=== PATIENT | female | born 1945 | race African-American/Black ===

== ENCOUNTER 2017-04-21 08:13 | Day surgery (SDC) | payer MEDICARE, MEDICAID ==
[~2017-04-21] VITALS: Ht 154.9 cm; Wt 89.0 kg
[~2017-04-21 08:13] MED LIST: ALBU1AER INH; AMLO10 PO; COZA50TA PO; GABA300 PO; GLUCTAB PO; HYDR-2768 PO; MEVA40TA6 PO; SERT50 PO; [UNRECOGNIZED DRUG - SUPPLY]; lancets TD; test strips TD
[2017-04-21 09:28] VITALS: BP 159/88; PULSE 73; RESP 16; TEMP 97.9; O2SAT 97
[2017-04-21] MEDS ORDERED: FERR325T8 PO (09:28)
[2017-04-21] MEDS ORDERED: HYDR25TA5 PO (09:28)
[2017-04-21] MEDS ORDERED: DILT-60 PO (09:28)
[2017-04-21] MEDS ORDERED: GABA300C5 PO (09:28)
[2017-04-21] MEDS ORDERED: VENTAER INH (09:28)
[2017-04-21] MEDS ORDERED: VITA100064 PO (09:28)
[2017-04-21] MEDS ORDERED: METO50TA PO (09:28)
[2017-04-21] MEDS ORDERED: CLOP75TA PO (09:28)
[2017-04-21] MEDS ORDERED: SERT-129 PO (09:28)
[2017-04-21] MEDS ORDERED: SODIUM BICARBONATE 100 MEQ in D5W 1000 ML IV SCH (09:30)
--- NOTE | 2017-04-21 10:13 | PD.VS.PN ---
Pre-operative Note Pre-operative diagnosis: PAD, L LE rest pain, failed distal bypass Planned procedure: Aortogram w/ L LE angiogram Interval History: Pt has continued L LE rest pain but no other change in history that would preclude angiogram today. Labs: pending Blood: none needed Orders: NPO Post-operative destination: DOCU Operative site marked: Yes Consent: Informed consent has been obtained from Shnael Landon. I have explained the procedure in detail and discussed the risks, benefits, and potential complications. All questions have been answered. Patient contact information: none per patient Hansel Casillas MD Apr 21, 2017 10:13
[2017-04-21] MEDS: HEPARIN SODIUM - IV 10,000 UNITS/10 ML VIAL ONE (10:30)
[2017-04-21] MEDS ORDERED: IOHEXOL 350 MG/ML 100 ML BTL (for RAD DIAG) OTHER ONE ×4 (10:30→12:50)
[2017-04-21] MEDS ORDERED: MIDAZOLAM HCL 5 MG/ML VIAL (1 ML) ONE (10:30)
[2017-04-21] MEDS: IOHEXOL 350 MG/ML 50 ML BTL (for RAD DIAG) OTHER ONE ×2 (10:30→12:46)
[2017-04-21 10:35] LABS: BASOPHIL # 0.1 TH/MM3 (0-0.2); BASOPHIL % 1.1 % (0.0-2.0); EOSINOPHIL # 0.2 TH/MM3 (0-0.4); LYMPH % 24.3 % (9.0-44.0); LYMPHOCYTE # 1.7 TH/MM3 (1.0-4.8); MEAN CELL VOLUME 82.9 FL (80.0-100.0); MEAN CORPUSCULAR HEMOGLOBIN 26.4 PG (27.0-34.0); MEAN CORPUSCULAR HGB CONC 31.9 % (32.0-36.0); MONO % 12.6 % (0.0-8.0); PLATELET COUNT 210 TH/MM3 (150-450); RED BLOOD COUNT 4.83 MIL/MM3 (4.00-5.30); RED CELL DISTRIBUTION WIDTH 18.6 % (11.6-17.2); WHITE BLOOD COUNT 6.9 TH/MM3 (4.0-11.0)
[2017-04-21 10:42] LABS: HEMO FLAGS AUTO DIFF
[2017-04-21 10:54] LABS: POTASSIUM 4.5 MEQ/L (3.5-5.1)
[2017-04-21 11:17] LABS: OVALOCYTES 1+ (NORMAL); PLATELET ESTIMATE SMEAR NORMAL (NORMAL); PLATELET MORPHOLOGY NORMAL (NORMAL); SCAN/DIFF AUTO DIFF CONFIRMED
--- NOTE | 2017-04-21 11:19 | HHI.PR ---
Immediate Post Op Note Procedure Date: Apr 21, 2017 Pre Op Diagnosis: PAD w/ L LE rest pain, failed distal Post Op Diagnosis: PAD w/ L LE rest pain, failed distal Surgeon: Hansel Casillas Flow Manager(s): none Procedure: Aortogram w/ L LE angiogram Findings: Occluded L SFA, bypass, and popliteal artery Occluded AT and PT Patent distal peroneal Complications: none apparent 4F sheath in R AUTOMATION CLERK removed in OR Estimated blood loss: 5mL Anesthesia: MAC Drains: None Patient to: Other (DOCU) Hansel Casillas MD Apr 21, 2017 11:19
--- NOTE | 2017-04-21 15:30 | MP ---
cc: HANSEL CASILLAS MD DATE OF SURGERY 04/21/2017 PREOPERATIVE DIAGNOSIS Left lower extremity rest pain, peripheral arterial occlusive disease, failed bypass. POSTOPERATIVE DIAGNOSIS Left lower extremity rest pain, peripheral arterial occlusive disease, failed bypass. PROCEDURE Aortogram with left lower extremity angiogram. ATTENDING SURGEON Hansel Casillas MD RESIDENT SURGEON None. ANESTHESIA Local with sedation. INDICATIONS FOR PROCEDURE Ms. Landon is a 72-year-old lady who has diabetes, peripheral vascular disease and several left lower extremity bypasses, all of which have failed. She presented with rest pain and the last option at limb salvage. She was taken to the operating room for angiographic evaluation and potential treatment. There was no prior catheterization or imaging studies available for my review. DESCRIPTION OF PROCEDURE Informed consent was obtained from the patient. She was taken to the operating room and placed supine on the operating room table. An appropriate time-out was taken to identify the patient, the operative site and the procedure. The administration of antibiotics was not necessary since it is a clean procedure and we do not plan the implantation of any foreign object. Everyone in the room agreed with the time-out and we proceeded. Her bilateral groins were prepped and draped and the right groin was anesthetized with 1% lidocaine. A 21-gauge micropuncture needle was used to access the right common femoral artery. This was exchanged using Seldinger technique through the micropuncture sheath through which a 0.05 Glidewire was introduced. The micropuncture sheath was exchanged for a 4-Bolivian sheath. A VCF catheter was placed over the wire into the sheath and aortogram and pelvic arteriogram was obtained. Glidewire was reintroduced and navigated down to the left common femoral artery and the VCF catheter was advanced over this and a left lower extremity arteriogram was obtained. The wire, catheter and sheath were removed and manual pressure applied for hemostasis. There were no complications. I was present and scrubbed and performed the entire procedure. INTERPRETATION OF IMAGES The patient has patent renal arteries, patent SMA, patent infrarenal aorta, common iliac arteries to the left common iliac artery stent that is widely patent. The left hypogastric artery is severely diseased as is the right but the external iliac arteries are patent. The left common femoral artery is patent. The profunda is patent but diseased. The SFA, popliteal and tibioperoneal trunk are all occluded. The anterior tibial artery and posterior tibial artery is occluded. The profunda-based collaterals reconstitute a distal peroneal artery at the very distal-most aspect of the calf. MD RASHAD Trevino/BETO /1:27 PM /3:12 PM
[2017-04-28] MEDS ORDERED: SERT-132 PO (13:12)
== END 2017-04-21 15:28 | disposition home or self-care (01) ==
LOC: HCVO 08:13 → HDIC 08:16 → HCVO 15:28
PROVIDERS: ATTEND Surgery
DX: I73.9 Peripheral vascular disease, unspecified (principal); I10 Essential (primary) hypertension; E78.00 Pure hypercholesterolemia, unspecified; J44.9 Chronic obstructive pulmonary disease, unspecified
CPT/HCPCS: 36246; 75625; 75710; 80048; 85025; C1769; J1644; J2250; J3010; Q9967

== ENCOUNTER → 2017-04-28 | Outpatient (CLI) | payer MEDICARE, MEDICAID ==
[~2017-04-28] MED LIST changes: -ALBU1AER INH; -AMLO10 PO; +CLOP75TA PO; -COZA50TA PO; +DILA2TAB2 PO; +DILT-60 PO; +FERR325T8 PO; -GABA300 PO; +GABA300C5 PO; -GLUCTAB PO; -HYDR-2768 PO; +HYDR25TA5 PO; +METO50TA PO; -MEVA40TA6 PO; +SERT-129 PO; +SERT-132 PO; -SERT50 PO; +VENTAER INH; +VITA100064 PO; -[UNRECOGNIZED DRUG - SUPPLY]; -lancets TD; -test strips TD
[2017-04-28 13:59] LABS: HEMATOCRIT 39.5 % (35.0-46.0); MEAN CELL VOLUME 83.4 FL (80.0-100.0); MEAN CORPUSCULAR HEMOGLOBIN 27.3 PG (27.0-34.0); MEAN CORPUSCULAR HGB CONC 32.8 % (32.0-36.0); PLATELET COUNT 212 TH/MM3 (150-450); RED BLOOD COUNT 4.74 MIL/MM3 (4.00-5.30); RED CELL DISTRIBUTION WIDTH 17.4 % (11.6-17.2); REVIEW FLAG FINAL; WHITE BLOOD COUNT 6.5 TH/MM3 (4.0-11.0)
[2017-04-28 14:17] LABS: BLOOD, URINE NEG (NEG); COMMENT (UR) CULT NOT INDICATED; CULTURE IF INDICATED CULT NOT INDICATED; GLUCOSE,URINE NEG (NEG); HYALINE CAST, URINE 4 /lpf (RARE); KETONE, URINE NEG (NEG); MUCUS URINE FEW /lpf (OCC); NITRITE,URINE NEG (NEG); SQUAMOUS EPITHELIAL CELL URINE 1 /hpf (0-5); URINE COLOR YELLOW (YELLW/STRAW)
[2017-04-28 14:25] LABS: BICARBONATE 27.9 MEQ/L (21.0-32.0)
--- NOTE | 2017-04-29 11:27 | EKG ---
Date Performed: 04/28/2017 Time Performed: 13:05:37 PTAGE: 72 years EKG: Sinus rhythm WITH OCCASIONAL SUPRAVENTRICULAR PREMATURE COMPLEXES BORDERLINE ECG PREVIOUS TRACING 04/06/2007 06.37.57 Atrial premature beats are new from the prior tracing. DOCTOR: Marcos Rico Interpretating Date/Time 04/29/2017 11:25:26
== END ==
LOC: CPRE 12:39
PROVIDERS: ATTEND Surgery
DX: Z01.810 Encounter for preprocedural cardiovascular examination (principal); I73.9 Peripheral vascular disease, unspecified; I10 Essential (primary) hypertension; Z01.812 Encounter for preprocedural laboratory examination
CPT/HCPCS: 36415; 80048; 81001; 85027; 93005

== ENCOUNTER 2017-05-07 06:24 | Inpatient (IN) | payer MEDICARE ==
[~2017-05-07] VITALS: Ht 154.9 cm; Wt 82.5 kg
[2017-05-07] VITALS (10 sets, daily range): BP systolic 132–170; BP diastolic 77–103; PULSE 104–113; RESP 18–22; TEMP 98.5–99.1; O2SAT 95
[~2017-05-07 06:24] MED LIST changes: -DILA2TAB2 PO; -FERR325T8 PO; -SERT-129 PO
[2017-05-07] MEDS ORDERED: POVIDONE IODINE 5% (ANTISEPSIS KIT) 4 APPLICATIONS EACH NARE PRN (07:00)
[2017-05-07] MEDS ORDERED: INSULIN HUMAN REGULAR 1,000 UNITS/10 ML VIAL SQ PRN (07:00)
[2017-05-07] MEDS ORDERED: METOPROLOL TARTRATE 25 MG TAB PO PRN (07:00)
[2017-05-07] MEDS ORDERED: SODIUM CHLORID 0.9% 500 ML IV PRN (07:00)
[2017-05-07] MEDS ORDERED: CHLORHEXIDINE GLUCONATE 2 % 1 PACK (2 CLOTHS) TOPICAL PRN (07:00)
[2017-05-07] MEDS ORDERED: LACTATED RINGER'S 1000 ML IV PRN (07:00)
--- NOTE | 2017-05-07 08:49 | PD.VS.PN ---
Pre-operative Note Pre-operative diagnosis: ischemic rest pain, L LE Planned procedure: L AKA Interval History: Pt has been in rest pain of the LEFT leg and is mentally and emotionally ready for an amputation. We again talked about the level and we agreed on ABOVE then knee. Blood: T&S Orders: NPO Ancef 2g IV OCTOR Post-operative destination: PACU Operative site marked: Yes Consent: Informed consent has been obtained from Shanel Landon. I have explained the procedure in detail and discussed the risks, benefits, and potential complications. All questions have been answered. Patient contact information: friend: Hortencia Blanc [phone] Hansel Casillas MD May 07, 2017 08:49
[2017-05-07] MEDS ORDERED: MIDAZOLAM HCL 2 MG/2 ML VIAL ONE (08:54)
[2017-05-07] MEDS ORDERED: FAMOTIDINE 20 MG/2 ML VIAL ONE (08:54)
[2017-05-07] MEDS ORDERED: HYDROmorphone HCL PF 2 MG/ML VIAL ONE (08:57)
[2017-05-07] MEDS ORDERED: ceFAZolin 2 GM PREMIX 50 ML ONE (09:10)
[2017-05-07] MEDS ORDERED: ALBUTEROL SULFATE 90 MCG/ACT HFA 18 GM INHALER INH PRN (09:45)
[2017-05-07] MEDS ORDERED: FAMOTIDINE 20 MG TAB PO SCH (09:45)
[2017-05-07] MEDS ORDERED: HYDROmorphone HCL PF 1 MG/ML VIAL ONE (09:55)
--- NOTE | 2017-05-07 10:08 | HHI.PR ---
Immediate Post Op Note Procedure Date: May 07, 2017 Pre Op Diagnosis: unreconstructable PAD, L LE, failed bypass Post Op Diagnosis: unreconstructable PAD, L LE, failed bypass Surgeon: Hansel Casillas Pin Feather Machine Operator(s): Christy Rico Procedure: L AKA Findings: well perfused tissue, no infection Complications: none Specimen(s) removed: L leg for pathology Estimated blood loss: 400mL Anesthesia: General Drains: None Fluids: 1000mL IVF Patient to: PACU Implant/Devices: SEE IMPLANT LOG (if applicable) Date/Time of Procedure: SEE SURGICAL CARE RECORD Hansel Casillas MD May 07, 2017 10:08
[2017-05-07] MEDS ORDERED: DO NOT ADM ANY ANTICOAGULANT DRUGS PRN (10:33)
[2017-05-07] MEDS ORDERED: *MEPERIDINE 25 MG INJ VIAL PERIprocedural Use ONLY ONE (10:34)
[2017-05-07] MEDS ORDERED: *ENALAPRILAT 1.25 MG/ML VIAL PERIprocedural Use ONLY ONE (10:35)
[2017-05-07] MEDS ORDERED: *HYDROmorphone PF 1 MG VIAL PERIprocedural Use ONLY ONE ×3 (10:46→15:09)
[2017-05-07] MEDS ORDERED: *LABETALOL HCL 100 MG/20 ML VIAL PERIprocedural Use ONLY ONE (10:46)
[2017-05-07] MEDS ORDERED: PROPOFOL 200 MG/20 ML AMP IV ONE (12:00)
[2017-05-07] MEDS ORDERED: ePHEDrine/NS 25 MG/5 ML SYR IV ONE (12:00)
[2017-05-07] MEDS ORDERED: PHENYLEPH/NS 1000 MCG/10 ML SYR IV ONE (12:00)
[2017-05-07] MEDS ORDERED: LACTATED RINGER'S 1000 ML INJ 1,000 ML IV ONE (12:00)
[2017-05-07] MEDS ORDERED: ONDANSETRON HCL 4 MG/2 ML VIAL IV PUSH ONE (12:00)
[2017-05-07] MEDS: CLOPIDOGREL 75 MG TAB PO SCH (17:31)
[2017-05-07] MEDS: DILTIAZEM-CD 180 MG CAP ER PO SCH (17:46)
[2017-05-07] MEDS: METOPROLOL TARTRATE 50 MG TAB PO SCH ×2 (17:46→22:43)
[2017-05-07] MEDS: SERTRALINE HCL 50 MG TAB PO SCH (17:46)
[2017-05-07] MEDS: HYDROCHLOROTHIAZIDE 25 MG TAB PO SCH (17:46)
[2017-05-07] MEDS: CHOLECALCIFEROL (VIT D3) 1000 UNIT TAB PO SCH (17:46)
[2017-05-07] MEDS: GABAPENTIN 300 MG CAP PO SCH ×2 (17:47→22:43)
[2017-05-07] MEDS: HYDROmorphone HCL 2 MG TAB PO PRN ×2 (17:52→22:43)
[2017-05-07 17:53] LABS: HEMATOCRIT 38.2 % (35.0-46.0); MEAN CELL VOLUME 85.1 FL (80.0-100.0); MEAN CORPUSCULAR HEMOGLOBIN 26.2 PG (27.0-34.0); MEAN CORPUSCULAR HGB CONC 30.8 % (32.0-36.0); PLATELET COUNT 255 TH/MM3 (150-450); RED BLOOD COUNT 4.49 MIL/MM3 (4.00-5.30); RED CELL DISTRIBUTION WIDTH 15.8 % (11.6-17.2); REVIEW FLAG FINAL; WHITE BLOOD COUNT 11.2 TH/MM3 (4.0-11.0)
[2017-05-07] MEDS ORDERED: GLUCAGON 1 MG/ML VIAL OTHER PRN (18:00)
[2017-05-07] MEDS ORDERED: DEXTROSE 50% IN WATER 50 ML VIAL(D50) IV PUSH PRN (18:00)
[2017-05-07] MEDS: LOW DOSE INSULIN NOVOLOG SUPPLEMENTAL SCALE SQ SCH (21:00)
[2017-05-07] MEDS ORDERED: HYDROmorphone HCL PF 1 MG/ML VIAL IV ONE (21:45)
[2017-05-07] MEDS ORDERED: HYDROmorphone HCL PF 1 MG/ML VIAL IV PRN (22:15)
[2017-05-07] MEDS: FAMOTIDINE 20 MG TAB PO SCH (22:43)
[2017-05-08] VITALS (25 sets, daily range): BP systolic 102–138; BP diastolic 71–96; PULSE 80–114; RESP 16–22; TEMP 97.9–99.9; O2SAT 20–98
[2017-05-08] MEDS: HYDROmorphone HCL 2 MG TAB PO PRN ×3 (03:04→20:53)
[2017-05-08] MEDS: LOW DOSE INSULIN NOVOLOG SUPPLEMENTAL SCALE SQ SCH ×4 (06:22→21:00)
--- NOTE | 2017-05-08 08:37 | MP ---
cc: HANSEL CASILLAS MD DATE OF SURGERY 05/07/2017 PREOPERATIVE DIAGNOSIS Unreconstructible peripheral arterial occlusive disease, failed left lower exam bypass. POSTOPERATIVE DIAGNOSIS Unreconstructible peripheral arterial occlusive disease, failed left lower exam bypass. PROCEDURE Left above-knee amputation MEDICATIONS Hansel Casillas MD OXYGEN THERAPIST Christy Rico ANESTHESIA General INDICATIONS Ms. Landon is a 72-year-old patient who has had failed left lower extremity bypass. She has ischemic rest pain and after angiogram determined her revascularization options would be very poor. I had a long discussion with the patient. She is requesting above-knee amputation. I think this is perfectly reasonable given the low likelihood of her long-term patency of her bypass and therefore relief of her symptoms. DESCRIPTION OF THE PROCEDURE Informed consent was obtained from the patient. She was taken to the operating room, placed supine on the operating table and an appropriate time-out was taken to ensure the patient's identity, the operative site and planned procedure. The administration of two grams of Ancef was initiated prior to the skin incision and will be discontinued after a single preoperative dose. Everyone in the room agreed with the time-out and we proceeded. Her left leg was prepped and draped. An incision was made just above the patella with the 10 blade, carried down through the subcutaneous tissue with electrocautery. The incision was fish mouthed medially and laterally and we dissected with electrocautery down to the femur. The femur was transected with an oscillating saw and the posterior muscle was incised with electrocautery. The larger veins were clamped with hemostats and suture ligated with 2-0 silk suture. The leg was passed off the table. The wound was irrigated, made hemostatic and closed with 2-0 Polysorb and skin jacob. The sponge and needle counts were correct at the end of the case. I was present, scrubbed and performed the entire procedure. Hansel Casillas MD RJF/DJL /4:10 PM /8:11 AM
[2017-05-08] MEDS: SERTRALINE HCL 50 MG TAB PO SCH (09:00)
[2017-05-08] MEDS: HYDROCHLOROTHIAZIDE 25 MG TAB PO SCH (09:00)
[2017-05-08] MEDS: GABAPENTIN 300 MG CAP PO SCH ×2 (09:00→20:51)
[2017-05-08] MEDS: METOPROLOL TARTRATE 50 MG TAB PO SCH ×2 (09:00→20:51)
[2017-05-08] MEDS: FAMOTIDINE 20 MG TAB PO SCH ×2 (09:00→20:53)
[2017-05-08] MEDS: CHOLECALCIFEROL (VIT D3) 1000 UNIT TAB PO SCH (09:00)
[2017-05-08] MEDS: CLOPIDOGREL 75 MG TAB PO SCH (09:00)
[2017-05-08] MEDS: DILTIAZEM-CD 180 MG CAP ER PO SCH (09:00)
[2017-05-08 09:04] LABS: HEMATOCRIT 35.1 % (35.0-46.0); MEAN CELL VOLUME 84.1 FL (80.0-100.0); MEAN CORPUSCULAR HEMOGLOBIN 27.1 PG (27.0-34.0); MEAN CORPUSCULAR HGB CONC 32.2 % (32.0-36.0); PLATELET COUNT 217 TH/MM3 (150-450); RED BLOOD COUNT 4.18 MIL/MM3 (4.00-5.30); RED CELL DISTRIBUTION WIDTH 15.9 % (11.6-17.2); REVIEW FLAG FINAL; WHITE BLOOD COUNT 13.1 TH/MM3 (4.0-11.0)
[2017-05-08 09:24] LABS: BICARBONATE 24.9 MEQ/L (21.0-32.0); POTASSIUM 3.2 MEQ/L (3.5-5.1)
[2017-05-08] MEDS ORDERED: HYDROmorphone HCL PF 1 MG/ML VIAL IV PUSH PRN (09:30)
[2017-05-08] MEDS ORDERED: PILL SPLITTER OTHER PRN (10:45)
--- NOTE | 2017-05-08 10:55 | PD.VS.PN ---
Subjective POD #: 1 Procedure(s): Kenan KRISTY Subjective/Hospital Course Afebrile 72/F S/P Kenan WAGNER Pt reported painful night last night Dressing to Kenan WAGNER I/C/D Objective Vitals/I&O Date Time Temp Pulse Resp B/P (MAP) Pulse Ox O2 Delivery O2 Flow Rate FiO2 05/08/17 06:00 92 05/08/17 05:00 97 05/08/17 04:00 91 05/08/17 03:10 98 Nasal Cannula 3.00 05/08/17 03:10 97.9 92 16 138/71 (93) 98 05/08/17 03:00 88 05/08/17 02:00 89 05/08/17 01:00 89 05/08/17 00:00 102 05/07/17 23:59 132/77 (95) 05/07/17 23:10 99.1 106 18 163/103 (123) 95 05/07/17 23:10 95 Nasal Cannula 3.00 05/07/17 23:00 109 05/07/17 22:00 104 05/07/17 21:00 106 05/07/17 20:30 95 Nasal Cannula 3.00 05/07/17 20:30 98.5 106 18 170/100 (123) 95 05/07/17 20:00 104 05/07/17 19:00 113 05/07/17 18:16 108 05/07/17 17:22 105 22 159/93 (115) 95 05/07/17 16:00 97 16 142/72 (95) 94 Nasal Cannula 3 05/07/17 15:00 96 16 158/78 (104) 97 Nasal Cannula 3 05/07/17 14:00 96 16 161/86 (111) 94 Nasal Cannula 3 05/07/17 13:00 94 16 161/74 (103) 95 Nasal Cannula 3 05/07/17 12:00 91 16 153/77 (102) 96 Nasal Cannula 3 05/07/17 11:45 90 16 154/75 (101) 94 Nasal Cannula 3 05/07/17 11:30 90 16 160/82 (108) 96 Nasal Cannula 3 05/07/17 11:15 87 16 167/83 (111) 98 Nasal Cannula 3 05/07/17 11:00 88 16 162/86 (111) 100 Nasal Cannula 3 05/07/17 10:58 88 14 158/81 (106) 97 Nasal Cannula 3 05/07/17 10:48 96 14 184/103 (130) 98 Nasal Cannula 3 05/07/17 10:45 97 14 174/103 (126) 96 Nasal Cannula 3 05/08/17 05/08/17 05/08/17 07:00 15:00 23:00 Intake Total 240 ml Balance 240 ml Exam: GENERAL: Pt alert in NAD,GCS15, A&OX3 SKIN: Warm and dry/ dressing to L AKA I/C/D Pt incontinent Laboratory Laboratory Tests Test 05/07/17 17:20 05/08/17 08:08 White Blood Count 11.2 13.1 Red Blood Count 4.49 4.18 Hemoglobin 11.8 11.3 Hematocrit 38.2 35.1 Mean Corpuscular Volume 85.1 84.1 Mean Corpuscular Hemoglobin 26.2 27.1 Mean Corpuscular Hemoglobin Concent 30.8 32.2 Red Cell Distribution Width 15.8 15.9 Platelet Count 255 217 Mean Platelet Volume 7.9 8.7 Blood Urea Nitrogen 20 Creatinine 1.06 Random Glucose 129 Calcium Level 8.5 Sodium Level 139 Potassium Level 3.2 Chloride Level 104 Carbon Dioxide Level 24.9 Anion Gap 10 Estimat Glomerular Filtration Rate 62 Assessment and Plan Assessment: (1) S/P AKA (above knee amputation) unilateral Status: Acute (2) PAD (peripheral artery disease) Status: Chronic Plan Pt w/ a PMH of multiple L LE vascular interventions, Severe PAD and rest pain. Pt is s/p L AKA POD 1 Pt c/o painful night Plan Continue pain management for pain control Continue PT Dressing to be changed in a few days Shanda ROTH [facility]/[place] [phone] Discharge Planning D/C planning - Rehab 2-3 days Shanda Pineda May 08, 2017 10:55
[2017-05-08] MEDS: ENOXAPARIN SODIUM 30 MG/0.3 ML SYRINGE SQ SCH (11:14)
[2017-05-08] MEDS: KETOROLAC TROMETHAMINE 30 MG/ML (IVP) VIAL IV PUSH PRN ×2 (17:39→22:55)
[2017-05-09] VITALS (29 sets, daily range): BP systolic 87–147; BP diastolic 51–96; PULSE 70–110; RESP 16–18; TEMP 98.3–99.1; O2SAT 86–98
[2017-05-09] MEDS: LOW DOSE INSULIN NOVOLOG SUPPLEMENTAL SCALE SQ SCH ×4 (06:29→20:47)
[2017-05-09] MEDS: HYDROmorphone HCL 2 MG TAB PO PRN ×3 (07:21→20:45)
[2017-05-09] MEDS: GABAPENTIN 300 MG CAP PO SCH ×2 (08:07→20:43)
[2017-05-09] MEDS: SERTRALINE HCL 50 MG TAB PO SCH (08:07)
[2017-05-09] MEDS: DILTIAZEM-CD 180 MG CAP ER PO SCH (08:07)
[2017-05-09] MEDS: CLOPIDOGREL 75 MG TAB PO SCH (08:07)
[2017-05-09] MEDS: METOPROLOL TARTRATE 50 MG TAB PO SCH ×2 (08:07→20:46)
[2017-05-09] MEDS: FAMOTIDINE 20 MG TAB PO SCH ×2 (08:08→20:45)
[2017-05-09] MEDS: HYDROCHLOROTHIAZIDE 25 MG TAB PO SCH (08:08)
[2017-05-09] MEDS: CHOLECALCIFEROL (VIT D3) 1000 UNIT TAB PO SCH (08:08)
[2017-05-09] MEDS: KETOROLAC TROMETHAMINE 30 MG/ML (IVP) VIAL IV PUSH PRN ×2 (08:08→19:00)
--- NOTE | 2017-05-09 09:20 | PD.VS.PN ---
Subjective POD #: 2 Procedure(s): L AKA Subjective/Hospital Course Afebrile 72/F S/P L AKA Pt w/o complaints Pain controlled Dressing to L AKA I/C/D Objective Vitals/I&O Date Time Temp Pulse Resp B/P (MAP) Pulse Ox O2 Delivery O2 Flow Rate FiO2 05/09/17 07:01 100 05/09/17 06:00 101 05/09/17 05:00 89 05/09/17 04:00 90 05/09/17 03:00 94 05/09/17 03:00 98.9 93 16 102/96 (98) 97 05/09/17 03:00 97 Room Air 05/09/17 02:00 86 05/09/17 01:00 88 05/09/17 00:00 88 05/08/17 23:00 99.7 110 20 102/96 (98) 97 05/08/17 23:00 97 Room Air 1.00 05/08/17 23:00 93 05/08/17 22:00 114 05/08/17 21:00 106 05/08/17 20:00 95 Room Air 1.00 05/08/17 20:00 102 05/08/17 20:00 99.0 111 18 121/85 (97) 95 05/08/17 19:00 104 05/08/17 18:13 105 05/08/17 17:00 102 05/08/17 16:00 91 05/08/17 15:00 86 05/08/17 15:00 93 Nasal Cannula 3.00 05/08/17 15:00 99.4 95 22 121/85 (97) 93 05/08/17 14:00 80 05/08/17 13:00 86 05/08/17 12:00 98 05/08/17 11:00 99.9 84 18 116/73 (87) 96 05/08/17 11:00 96 Nasal Cannula 3.00 05/08/17 11:00 88 05/08/17 10:00 92 05/09/17 05/09/17 05/09/17 06:59 14:59 22:59 Intake Total 240 ml Output Total 300 ml Balance -60 ml Exam: GENERAL: Pt alert in NAD,GCS15, A&OX3 SKIN: Warm and dry/ dressing to L AKA I/C/D CARDIOVASCULAR: +S1,S2 RESPIRATORY: BS CTA Assessment and Plan Assessment: (1) S/P AKA (above knee amputation) unilateral Status: Acute (2) PAD (peripheral artery disease) Status: Chronic Plan Pt w/ a PMH of multiple L LE vascular interventions, Severe PAD and rest pain. Pt is s/p L AKA POD 2 Pt w/o complaints Pain controlled Plan Continue pain management for pain control Continue PT/OOB to chair Dressing to be changed in a few days D/C planning to Rehab Shanda ROTH [facility]/[place] [phone] Discharge Planning D/C planning - Rehab 2-3 days Shanda Pineda May 09, 2017 09:20
[2017-05-09] MEDS: ENOXAPARIN SODIUM 30 MG/0.3 ML SYRINGE SQ SCH (13:40)
[2017-05-10] VITALS (30 sets, daily range): BP systolic 112–148; BP diastolic 67–91; PULSE 74–96; RESP 16–18; TEMP 98.4–99; O2SAT 79–97
[2017-05-10] MEDS: KETOROLAC TROMETHAMINE 30 MG/ML (IVP) VIAL IV PUSH PRN ×3 (01:20→22:22)
[2017-05-10] MEDS: LOW DOSE INSULIN NOVOLOG SUPPLEMENTAL SCALE SQ SCH ×4 (06:54→21:00)
[2017-05-10] MEDS: HYDROmorphone HCL 2 MG TAB PO PRN ×4 (06:54→20:33)
--- NOTE | 2017-05-10 07:16 | PD.VS.PN ---
Subjective POD #: 3 Procedure(s): L AKA Subjective/Hospital Course Doing well; pain controlled Johnnie diet; was OOB yesterday Objective Vitals/I&O Date Time Temp Pulse Resp B/P (MAP) Pulse Ox O2 Delivery O2 Flow Rate FiO2 05/10/17 07:01 85 05/10/17 06:30 98.7 85 16 145/77 (99) 85 05/10/17 05:00 85 05/10/17 04:00 78 05/10/17 03:46 97 Room Air 05/10/17 03:00 77 05/10/17 02:00 76 05/10/17 01:29 99.0 84 16 115/70 (85) 96 05/10/17 01:00 86 05/10/17 00:00 84 05/09/17 23:36 95 Room Air 05/09/17 23:00 78 05/09/17 22:00 84 05/09/17 21:00 90 05/09/17 20:54 99.1 86 16 147/83 (104) 86 05/09/17 20:33 92 Room Air 05/09/17 20:00 98 05/09/17 19:00 110 05/09/17 18:01 92 05/09/17 17:00 94 05/09/17 16:01 84 05/09/17 15:15 98.7 81 18 116/70 (85) 92 05/09/17 15:15 92 Room Air 05/09/17 15:00 85 05/09/17 14:00 80 05/09/17 13:01 76 05/09/17 12:00 70 05/09/17 11:30 96 Room Air 05/09/17 11:30 98.8 75 18 87/51 (63) 95 05/09/17 11:18 98 21 05/09/17 11:00 75 05/09/17 10:00 90 05/09/17 09:00 98 05/09/17 08:01 96 Room Air 05/09/17 08:01 98.3 103 18 111/68 (82) 96 05/09/17 08:00 104 05/10/17 05/10/17 05/10/17 07:00 15:00 23:00 Intake Total 240 ml Output Total 800 ml Balance -560 ml Exam: resting comfortably L AKA dressing intact Assessment and Plan Assessment: (1) S/P AKA (above knee amputation) unilateral Status: Acute (2) PAD (peripheral artery disease) Status: Chronic Plan doing well POD#3 1. LILIBETH wrap down tomorrow (POD#4) 2. PT/OOB 3. normalize 4. Zapata out tomorrow (reinserted due to lack of mobility) Discharge Planning D/C planning - Rehab 2-3 days Hansel Casillas MD May 10, 2017 07:16
[2017-05-10 08:22] LABS: BICARBONATE 27.5 MEQ/L (21.0-32.0); POTASSIUM 4.2 MEQ/L (3.5-5.1)
[2017-05-10] MEDS: METOPROLOL TARTRATE 50 MG TAB PO SCH ×2 (08:59→20:31)
[2017-05-10] MEDS: CHOLECALCIFEROL (VIT D3) 1000 UNIT TAB PO SCH (08:59)
[2017-05-10] MEDS: SERTRALINE HCL 50 MG TAB PO SCH (09:00)
[2017-05-10] MEDS: CLOPIDOGREL 75 MG TAB PO SCH (09:00)
[2017-05-10] MEDS: HYDROCHLOROTHIAZIDE 25 MG TAB PO SCH (09:01)
[2017-05-10] MEDS: DILTIAZEM-CD 180 MG CAP ER PO SCH (09:01)
[2017-05-10] MEDS: GABAPENTIN 300 MG CAP PO SCH ×2 (09:02→20:31)
[2017-05-10] MEDS: FAMOTIDINE 20 MG TAB PO SCH ×2 (09:03→20:33)
[2017-05-10] MEDS: ENOXAPARIN SODIUM 30 MG/0.3 ML SYRINGE SQ SCH (09:04)
[2017-05-11] VITALS (25 sets, daily range): BP systolic 114–147; BP diastolic 55–84; PULSE 73–109; RESP 16–18; TEMP 98.3–99.1; O2SAT 96–100
[2017-05-11] MEDS: HYDROmorphone HCL 2 MG TAB PO PRN ×4 (04:47→20:59)
[2017-05-11] MEDS: LOW DOSE INSULIN NOVOLOG SUPPLEMENTAL SCALE SQ SCH ×4 (06:48→21:00)
--- NOTE | 2017-05-11 08:14 | PD.VS.PN ---
Subjective POD #: 4 Procedure(s): L AKA Subjective/Hospital Course Doing well; pain controlled needs to have BM feels like R leg weak Objective Vitals/I&O Date Time Temp Pulse Resp B/P (MAP) Pulse Ox O2 Delivery O2 Flow Rate FiO2 05/11/17 06:00 78 05/11/17 05:00 77 05/11/17 04:50 98.6 77 18 131/66 (87) 96 05/11/17 04:00 78 05/11/17 03:16 94 Room Air 05/11/17 03:00 73 05/11/17 02:00 78 05/11/17 01:00 76 05/11/17 00:00 80 05/10/17 23:28 94 Room Air 05/10/17 23:11 98.4 83 18 143/77 (99) 94 05/10/17 23:00 77 05/10/17 22:00 82 05/10/17 21:00 81 05/10/17 20:30 95 Room Air 05/10/17 20:30 98.4 91 18 142/88 (106) 95 05/10/17 20:00 91 05/10/17 19:00 85 05/10/17 18:12 89 05/10/17 17:08 96 05/10/17 16:56 16 05/10/17 16:07 79 05/10/17 15:42 98.8 80 16 148/91 (110) 97 05/10/17 15:24 83 05/10/17 15:24 96 Room Air 05/10/17 14:38 16 05/10/17 14:01 74 05/10/17 13:42 76 05/10/17 12:00 78 05/10/17 11:49 98.7 79 16 112/67 (82) 79 05/10/17 11:49 96 Room Air 05/10/17 11:00 75 05/10/17 10:00 84 05/10/17 09:00 96 05/11/17 05/11/17 05/11/17 07:00 15:00 23:00 Intake Total 480 ml Output Total 1100 ml Balance -620 ml Exam: L AKA incision ok - dressing removed today R leg ok Assessment and Plan Assessment: (1) S/P AKA (above knee amputation) unilateral Status: Acute (2) PAD (peripheral artery disease) Status: Chronic Plan doing well POD#4 1. PT/OOB 2. normalize 3. Zapata out tomorrow (reinserted due to lack of mobility) 4. laxative for BM Discharge Planning D/C planning - Rehab 2-3 days Hansel Casillas MD May 11, 2017 08:14
[2017-05-11] MEDS ORDERED: BISACODYL EC 5 MG TABEC PO PRN (08:15)
[2017-05-11] MEDS: DOCUSATE SODIUM 100 MG CAP PO SCH ×2 (09:21→20:59)
[2017-05-11] MEDS: FAMOTIDINE 20 MG TAB PO SCH ×3 (09:22→20:56)
[2017-05-11] MEDS: CLOPIDOGREL 75 MG TAB PO SCH (09:23)
[2017-05-11] MEDS: DILTIAZEM-CD 180 MG CAP ER PO SCH (09:24)
[2017-05-11] MEDS: CHOLECALCIFEROL (VIT D3) 1000 UNIT TAB PO SCH (09:25)
[2017-05-11] MEDS: SERTRALINE HCL 50 MG TAB PO SCH (09:25)
[2017-05-11] MEDS: METOPROLOL TARTRATE 50 MG TAB PO SCH ×3 (09:27→20:59)
[2017-05-11] MEDS: GABAPENTIN 300 MG CAP PO SCH ×2 (09:27→20:59)
[2017-05-11] MEDS: HYDROCHLOROTHIAZIDE 25 MG TAB PO SCH (09:28)
[2017-05-11] MEDS: ENOXAPARIN SODIUM 30 MG/0.3 ML SYRINGE SQ SCH (09:28)
[2017-05-11] MEDS: KETOROLAC TROMETHAMINE 30 MG/ML (IVP) VIAL IV PUSH PRN ×2 (11:51→20:55)
[2017-05-12] VITALS (25 sets, daily range): BP systolic 109–156; BP diastolic 58–99; PULSE 68–104; RESP 16; TEMP 98.3–98.9; O2SAT 92–97
[2017-05-12] MEDS: KETOROLAC TROMETHAMINE 30 MG/ML (IVP) VIAL IV PUSH PRN (02:52)
[2017-05-12] MEDS: LOW DOSE INSULIN NOVOLOG SUPPLEMENTAL SCALE SQ SCH ×4 (07:00→21:00)
--- NOTE | 2017-05-12 08:39 | PD.VS.PN ---
Subjective POD #: 5 Procedure(s): L AKA Subjective/Hospital Course doing well good spirits still needs PT had BM yesterday; nicolasa reg diet Objective Vitals/I&O Date Time Temp Pulse Resp B/P (MAP) Pulse Ox O2 Delivery O2 Flow Rate FiO2 05/12/17 07:30 98.3 68 16 142/94 (110) 92 05/12/17 06:00 73 05/12/17 05:00 71 05/12/17 04:00 96 05/12/17 03:16 98.6 78 16 109/58 (75) 97 05/12/17 03:15 98 Room Air 05/12/17 03:00 75 05/12/17 02:00 96 05/12/17 01:00 96 05/12/17 00:00 96 05/11/17 23:26 94 Room Air 05/11/17 23:00 75 05/11/17 22:00 96 05/11/17 21:28 106 05/11/17 20:00 86 05/11/17 20:00 98.3 109 16 130/73 (92) 98 05/11/17 19:23 96 Room Air 05/11/17 19:00 91 05/11/17 18:15 103 05/11/17 17:09 87 05/11/17 16:02 79 05/11/17 15:24 97 Room Air 05/11/17 15:24 98.7 80 16 117/55 (75) 97 05/11/17 15:24 79 05/11/17 14:23 16 05/11/17 14:11 83 05/11/17 13:05 16 05/11/17 13:02 81 05/11/17 12:08 82 05/11/17 11:30 100 Room Air 05/11/17 11:30 78 05/11/17 11:30 99.1 82 16 114/60 (78) 100 05/11/17 10:00 88 05/11/17 09:00 88 05/12/17 05/12/17 05/12/17 07:00 15:00 23:00 Intake Total 480 ml Output Total 750 ml Balance -270 ml Exam: L AKA soft, minimal edema incision covered. Assessment and Plan Assessment: (1) S/P AKA (above knee amputation) unilateral Status: Acute (2) PAD (peripheral artery disease) Status: Chronic Plan doing well POD#5 1. PT/OOB 2. normalize 3. Zapata out today 4. D/C planning Discharge Planning rehab Hansel Reid MD May 12, 2017 08:39
[2017-05-12] MEDS: CHOLECALCIFEROL (VIT D3) 1000 UNIT TAB PO SCH (09:04)
[2017-05-12] MEDS: CLOPIDOGREL 75 MG TAB PO SCH (09:04)
[2017-05-12] MEDS: METOPROLOL TARTRATE 50 MG TAB PO SCH ×2 (09:04→20:52)
[2017-05-12] MEDS: GABAPENTIN 300 MG CAP PO SCH ×2 (09:04→20:52)
[2017-05-12] MEDS: DILTIAZEM-CD 180 MG CAP ER PO SCH (09:04)
[2017-05-12] MEDS: FAMOTIDINE 20 MG TAB PO SCH (09:04)
[2017-05-12] MEDS: DOCUSATE SODIUM 100 MG CAP PO SCH ×2 (09:04→20:52)
[2017-05-12] MEDS: ENOXAPARIN SODIUM 30 MG/0.3 ML SYRINGE SQ SCH (09:05)
[2017-05-12] MEDS: HYDROCHLOROTHIAZIDE 25 MG TAB PO SCH (09:09)
[2017-05-12] MEDS: SERTRALINE HCL 50 MG TAB PO SCH (09:10)
[2017-05-12] MEDS: HYDROmorphone HCL 2 MG TAB PO PRN ×2 (10:16→20:55)
[2017-05-13] VITALS (27 sets, daily range): BP systolic 111–170; BP diastolic 58–91; PULSE 68–96; RESP 16–19; TEMP 98–98.7; O2SAT 94–98
[2017-05-13] MEDS: KETOROLAC TROMETHAMINE 30 MG/ML (IVP) VIAL IV PUSH PRN (01:17)
[2017-05-13] MEDS: HYDROmorphone HCL 2 MG TAB PO PRN ×4 (05:36→21:56)
[2017-05-13] MEDS: LOW DOSE INSULIN NOVOLOG SUPPLEMENTAL SCALE SQ SCH ×4 (07:00→21:00)
--- NOTE | 2017-05-13 09:16 | PD.VS.PN ---
Subjective POD #: 6 Procedure(s): L AKA Subjective/Hospital Course doing well good spirits still needs PT + voiding and gaining mobility. Objective Vitals/I&O Date Time Temp Pulse Resp B/P (MAP) Pulse Ox O2 Delivery O2 Flow Rate FiO2 05/13/17 07:15 70 05/13/17 06:20 98.6 78 16 127/58 (81) 97 05/13/17 06:00 74 05/13/17 05:00 68 05/13/17 04:05 97 Room Air 05/13/17 04:00 74 05/13/17 03:00 83 05/13/17 02:07 98.7 77 16 138/91 (107) 94 05/13/17 02:00 80 05/13/17 01:00 76 05/13/17 00:00 76 05/12/17 23:40 96 Room Air 05/12/17 23:00 86 05/12/17 22:00 84 05/12/17 21:00 88 05/12/17 20:00 95 Room Air 05/12/17 20:00 98.8 93 16 143/93 (110) 95 05/12/17 19:00 86 05/12/17 18:45 82 05/12/17 17:29 75 05/12/17 16:40 83 05/12/17 15:19 98.9 80 16 127/89 (102) 92 05/12/17 15:19 98 Room Air 05/12/17 15:19 71 05/12/17 14:05 83 05/12/17 13:11 94 05/12/17 12:11 87 05/12/17 11:30 98.9 86 16 156/99 (118) 96 05/12/17 11:30 98 Room Air 05/12/17 11:30 71 05/12/17 11:16 16 05/12/17 10:21 104 05/13/17 05/13/17 05/13/17 07:00 15:00 23:00 Intake Total 480 ml Balance 480 ml Exam: L AKA with minimal edema, no erythema Assessment and Plan Assessment: (1) S/P AKA (above knee amputation) unilateral Status: Acute (2) PAD (peripheral artery disease) Status: Chronic Plan doing well POD#6 1. PT/OOB 2. normalize 3. ready for rehab Discharge Planning Hansel Hope MD May 13, 2017 09:16
[2017-05-13] MEDS: DILTIAZEM-CD 180 MG CAP ER PO SCH (09:27)
[2017-05-13] MEDS: SERTRALINE HCL 50 MG TAB PO SCH (09:27)
[2017-05-13] MEDS: FAMOTIDINE 20 MG TAB PO SCH ×2 (09:27→21:54)
[2017-05-13] MEDS: CHOLECALCIFEROL (VIT D3) 1000 UNIT TAB PO SCH (09:27)
[2017-05-13] MEDS: METOPROLOL TARTRATE 50 MG TAB PO SCH ×2 (09:27→21:54)
[2017-05-13] MEDS: DOCUSATE SODIUM 100 MG CAP PO SCH ×2 (09:27→21:00)
[2017-05-13] MEDS: GABAPENTIN 300 MG CAP PO SCH ×2 (09:27→21:54)
[2017-05-13] MEDS: CLOPIDOGREL 75 MG TAB PO SCH (09:28)
[2017-05-13] MEDS: HYDROCHLOROTHIAZIDE 25 MG TAB PO SCH (09:28)
[2017-05-13] MEDS: ENOXAPARIN SODIUM 30 MG/0.3 ML SYRINGE SQ SCH (09:29)
[2017-05-14] VITALS (19 sets, daily range): BP systolic 107–156; BP diastolic 58–81; PULSE 61–99; RESP 16–18; TEMP 98.1–98.5; O2SAT 93–98
[2017-05-14] MEDS: LOW DOSE INSULIN NOVOLOG SUPPLEMENTAL SCALE SQ SCH ×4 (08:00→20:24)
[2017-05-14] MEDS: METOPROLOL TARTRATE 50 MG TAB PO SCH ×2 (09:32→20:24)
[2017-05-14] MEDS: CLOPIDOGREL 75 MG TAB PO SCH (09:32)
[2017-05-14] MEDS: DILTIAZEM-CD 180 MG CAP ER PO SCH (09:32)
[2017-05-14] MEDS: ENOXAPARIN SODIUM 30 MG/0.3 ML SYRINGE SQ SCH (09:32)
[2017-05-14] MEDS: CHOLECALCIFEROL (VIT D3) 1000 UNIT TAB PO SCH (09:32)
[2017-05-14] MEDS: SERTRALINE HCL 50 MG TAB PO SCH (09:32)
[2017-05-14] MEDS: HYDROCHLOROTHIAZIDE 25 MG TAB PO SCH (09:32)
[2017-05-14] MEDS: DOCUSATE SODIUM 100 MG CAP PO SCH ×2 (09:32→20:24)
[2017-05-14] MEDS: HYDROmorphone HCL 2 MG TAB PO PRN ×2 (09:33→18:32)
[2017-05-14] MEDS: GABAPENTIN 300 MG CAP PO SCH ×2 (09:33→20:24)
[2017-05-14] MEDS: FAMOTIDINE 20 MG TAB PO SCH ×2 (09:33→20:24)
--- NOTE | 2017-05-14 10:25 | PD.VS.PN ---
Subjective POD #: 7 Procedure(s): L AKA Subjective/Hospital Course Pain controlled Pt w/o complaints L AKA incision intact Objective Vitals/I&O Date Time Temp Pulse Resp B/P (MAP) Pulse Ox O2 Delivery O2 Flow Rate FiO2 05/14/17 09:30 81 05/14/17 08:30 77 05/14/17 07:20 61 05/14/17 07:20 98.1 78 18 156/80 (105) 93 05/14/17 06:03 99 05/14/17 05:09 70 05/14/17 04:16 72 05/14/17 03:20 98.3 86 16 107/58 (74) 98 05/14/17 03:15 68 05/14/17 02:09 80 05/14/17 01:20 75 05/14/17 00:28 71 05/13/17 23:41 76 05/13/17 23:15 98.5 74 18 111/66 (81) 97 05/13/17 22:16 84 05/13/17 21:00 78 05/13/17 20:08 98.7 96 18 128/78 (95) 94 05/13/17 20:08 76 05/13/17 18:29 89 05/13/17 17:54 81 05/13/17 16:23 79 05/13/17 15:00 98.4 78 18 132/75 (94) 97 05/13/17 15:00 72 05/13/17 14:00 75 05/13/17 13:00 78 05/13/17 12:00 90 05/13/17 11:00 74 05/13/17 11:00 Room Air 98 05/13/17 11:00 98.2 86 16 127/68 (87) 98 05/14/17 05/14/17 05/14/17 07:00 15:00 23:00 Intake Total 240 ml Output Total 120 ml Balance 120 ml Exam: GENERAL: Afebrile 72/F/ Alert in NAD, GCS15 SKIN: Warm and dry L AKA incision intact w/ staple closure w/o R/D/O Mild swelling present Assessment and Plan Assessment: (1) S/P AKA (above knee amputation) unilateral Status: Acute (2) PAD (peripheral artery disease) Status: Chronic Plan doing well POD#7 Plan D/C to rehab today Continue OP PT Arranged OP F/U Shadna ROTH [facility]/[place] [phone] Discharge Planning D/C to rehab Shanda Pineda May 14, 2017 10:25
[2017-05-14] MEDS ORDERED: DILA2TAB2 PO (10:34)
--- NOTE | 2017-05-14 10:48 | PD.VS.DC ---
Discharge Summary Admission Date: May 07, 2017 at 06:24 Discharge Date: May 14, 2017 Admission Diagnosis: (1) PAD (peripheral artery disease) (2) S/P AKA (above knee amputation) unilateral Discharge Diagnosis: (1) S/P AKA (above knee amputation) unilateral ICD Codes: Z89.619 - Acquired absence of unspecified leg above knee Status: Acute (2) PAD (peripheral artery disease) ICD Codes: I73.9 - Peripheral vascular disease, unspecified Status: Chronic Brief History from admission Pt has been in rest pain of the LEFT leg MsParvez~is a~very pleasant 72 y.o., , female~with history of severe PAD~who presented to our [facility]PC for an evaluation of her LLE claudication and rest pain. Pt is s/p left common femoral endarterectomy with profundoplasty/ Left common femoral to peroneal bypass w GCS (10/07/16) that was done at [facility]. Pt stated she was told if symptoms worsens she would need an amputation to her Left LE Pt is mentally and emotionally ready for an amputation Procedure(s): L AKA Significant Findings GENERAL: Afebrile 72/F/ Alert in NAD, GCS15 SKIN: Warm and dry L AKA incision intact w/ staple closure w/o R/D/O Mild swelling present Allergies Coded Allergies Type Severity Reaction Last Updated Verified codeine Allergy Severe THROAT CLOSES 05/07/17 No morphine Allergy Mild AMS 05/07/17 No Egg Derived Allergy Unknown 05/07/17 Yes acetaminophen Allergy Unknown 04/28/17 Yes egg Allergy Unknown 05/07/17 Yes oxycodone Allergy Unknown 05/07/17 Yes 05/12/17 05/12/17 05/13/17 05/13/17 05/14/17 05/14/17 06:00 18:00 06:00 18:00 06:00 18:00 Intake Total 480 ml 840 ml 960 ml 240 ml Output Total 750 ml 1501 ml 250 ml 120 ml Balance -270 ml -661 ml 710 ml 120 ml Intake Oral 480 ml 840 ml 960 ml 240 ml Output Urine Total 750 ml 1500 ml 250 ml 120 ml Stool Total 1 ml # Voids 6 # Bowel Movements 1 Orders Procedure Category Date Status Time Remove Urinary KEEGAN 05/12/17 In Process Catheter 08:36 ^ Other Nursing Orders KEEGAN 05/12/17 In Process 08:39 Attending Discharge DISCHARGE 05/14/17 Transmitted Order (Hub Use Only)Inp Phy CONS 05/14/17 Transmitted Cons/Ref Vital Signs Date Time Temp Pulse Resp B/P (MAP) Pulse Ox O2 Delivery O2 Flow Rate FiO2 05/14/17 10:37 80 05/14/17 09:30 81 05/14/17 08:30 77 05/14/17 07:20 61 05/14/17 07:20 98.1 78 18 156/80 (105) 93 05/14/17 06:03 99 05/14/17 05:09 70 05/14/17 04:16 72 05/14/17 03:20 98.3 86 16 107/58 (74) 98 05/14/17 03:15 68 05/14/17 02:09 80 05/14/17 01:20 75 05/14/17 00:28 71 05/13/17 23:41 76 05/13/17 23:15 98.5 74 18 111/66 (81) 97 05/13/17 22:16 84 05/13/17 21:00 78 05/13/17 20:08 98.7 96 18 128/78 (95) 94 05/13/17 20:08 76 05/13/17 18:29 89 05/13/17 17:54 81 05/13/17 16:23 79 05/13/17 15:00 98.4 78 18 132/75 (94) 97 05/13/17 15:00 72 05/13/17 14:00 75 05/13/17 13:00 78 05/13/17 12:00 90 05/13/17 11:00 74 05/13/17 11:00 Room Air 98 05/13/17 11:00 98.2 86 16 127/68 (87) 98 05/13/17 10:00 94 05/13/17 09:00 88 05/13/17 08:00 76 05/13/17 07:15 70 05/13/17 07:00 98.0 88 19 170/86 (114) 98 05/13/17 07:00 Room Air 98 05/13/17 06:20 98.6 78 16 127/58 (81) 97 05/13/17 06:00 74 05/13/17 05:00 68 05/13/17 04:05 97 Room Air 05/13/17 04:00 74 05/13/17 03:00 83 05/13/17 02:07 98.7 77 16 138/91 (107) 94 05/13/17 02:00 80 05/13/17 01:00 76 05/13/17 00:00 76 05/12/17 23:40 96 Room Air 05/12/17 23:00 86 05/12/17 22:00 84 05/12/17 21:00 88 05/12/17 20:00 95 Room Air 05/12/17 20:00 98.8 93 16 143/93 (110) 95 05/12/17 19:00 86 05/12/17 18:45 82 05/12/17 17:29 75 05/12/17 16:40 83 05/12/17 15:19 98.9 80 16 127/89 (102) 92 05/12/17 15:19 98 Room Air 05/12/17 15:19 71 05/12/17 14:05 83 05/12/17 13:11 94 05/12/17 12:11 87 05/12/17 11:30 98.9 86 16 156/99 (118) 96 05/12/17 11:30 98 Room Air 05/12/17 11:30 71 05/12/17 11:16 16 05/12/17 10:21 104 05/12/17 09:00 82 05/12/17 08:00 80 05/12/17 07:30 71 05/12/17 07:30 98 Room Air 05/12/17 07:30 98.3 68 16 142/94 (110) 92 05/12/17 06:00 73 05/12/17 05:00 71 05/12/17 04:00 96 05/12/17 03:16 98.6 78 16 109/58 (75) 97 05/12/17 03:15 98 Room Air 05/12/17 03:00 75 05/12/17 02:00 96 05/12/17 01:00 96 05/12/17 00:00 96 05/11/17 23:26 94 Room Air 05/11/17 23:00 75 05/11/17 22:00 96 05/11/17 21:28 106 05/11/17 20:00 86 05/11/17 20:00 98.3 109 16 130/73 (92) 98 05/11/17 19:23 96 Room Air 05/11/17 19:00 91 05/11/17 18:15 103 05/11/17 17:09 87 05/11/17 16:02 79 05/11/17 15:24 97 Room Air 05/11/17 15:24 98.7 80 16 117/55 (75) 97 05/11/17 15:24 79 05/11/17 14:11 83 05/11/17 13:05 16 05/11/17 13:02 81 05/11/17 12:08 82 05/11/17 11:30 100 Room Air 05/11/17 11:30 78 05/11/17 11:30 99.1 82 16 114/60 (78) 100 Hospital Course: Pt has been in rest pain of the LEFT leg Ms.~Barbi~is a~very pleasant 72 y.o., , female~with history of severe PAD~who presented to our OPC for an evaluation of her LLE claudication and rest pain. Pt is s/p left common femoral endarterectomy with profundoplasty/ Left common femoral to peroneal bypass w GCS (10/07/16) that was done at [facility]. Pt stated she was told if symptoms worsens she would need an amputation to her Left LE Pt is s/p L AKA w/o complications Pt D/C planning to a SNF for continued Rehabilitation Arranged post op F/U Discharge Condition: Good Discharge Disposition: Discharge to SNF Discharge Instructions: F/U in 3W Call to report any new onset increased redness, drainage, swelling, fever or chills May shower NO TUB BATHS until incision is fully healed Leave incision open to air If drainage present apply sterile 4x4 then Kerlix then tape Change daily Cleanse with NS daily Call the office with any questions or concerns Shanda ROTH [facility]/[place] [phone] Any questions or concerns: Call [facility] Heart [facility] V[facility] Surgery at [facility] [phone] Shanda Pineda May 14, 2017 10:48
== END 2017-05-14 20:44 | DRG 240 ==
LOC: HSDI 06:24 → HCIN 17:15
PROVIDERS: ADMIT Surgery; ATTEND Surgery
PROC: 0Y6D0Z3 Detachment at Left Upper Leg, Low, Open Approach (ICD-10-PCS; principal; 2017-05-07 08:58)
DX: I73.9 Peripheral vascular disease, unspecified (principal); T82.898A Other specified complication of vascular prosthetic devices, implants and grafts, initial encounter; E11.8 Type 2 diabetes mellitus with unspecified complications; G62.9 Polyneuropathy, unspecified; J44.9 Chronic obstructive pulmonary disease, unspecified; I10 Essential (primary) hypertension; E78.5 Hyperlipidemia, unspecified; Z87.891 Personal history of nicotine dependence; E66.9 Obesity, unspecified; Z68.34 Body mass index [BMI] 34.0-34.9, adult
CPT/HCPCS: 80048; 82948; 85027; 86850; 86900; 86901; 88307; 88311; 94150; J0690; J1170; J1650; J1815; J1885; J2175; J2250; J2370; J2405; J3010; J7120